=== PATIENT | male | born 1965 | race Caucasian/White ===

== ENCOUNTER 2018-02-27 09:58 | Outpatient (CLI) | payer MEDICARE, MEDICAID ==
--- NOTE | 2018-02-28 10:54 | RAD ---
MODIFIED BARIUM SWALLOW: History: Dysphagia, oropharynx phase, R13.12. Feeding difficulties, R63.3. Pneumonitis due to inhalat ion of fluid and vomit, J69.0 Comparison: None. Technique: Examination is performed by the speech pathologist. Multiple consistencies of contrast giv en by the speech pathologist. The radiologist was not present. Please see speech pathologist reports for details of the examination. IMPRESSION: Fluoroscopy for speech pathologist. POS: [facility]
== END 2018-02-27 09:59 | disposition home or self-care (01) ==
PROVIDERS: ATTEND Internal Medicine
DX: R13.12 Dysphagia, oropharyngeal phase (principal); R63.3 Feeding difficulties; J69.0 Pneumonitis due to inhalation of food and vomit
CPT/HCPCS: 74230; G8996-GN-CK; G8997-GN-CK; G8998-GN-CK